=== PATIENT | male | born 1985 | race Caucasian/White ===

== ENCOUNTER 2021-01-01 13:50 | Outpatient (REF) | payer OTHER, SELFPAY ==
--- NOTE | ~2021-01-01 | XR_ITS ---
EXAMINATION: XR CHEST CLINICAL INFORMATION: Contusion COMPARISON: None TECHNIQUE: 2 views of the chest were obtained. FINDINGS: No significant abnormality is noted involving the heart, lungs, mediastinum, bony thorax or soft tissues. XR/XR chest 2V IMPRESSION: Unremarkable examination.
== END 2021-01-01 13:51 | disposition home or self-care (01) ==
LOC: HO.HMGCX 13:50
PROVIDERS: Visit Provider Nurse Practitioner Family
DX: S20.219A Contusion of unspecified front wall of thorax, initial encounter (principal); X58.XXXA Exposure to other specified factors, initial encounter; Y93.9 Activity, unspecified; Y92.9 Unspecified place or not applicable; Y99.9 Unspecified external cause status
CPT/HCPCS: 71046